=== PATIENT | female | born 1995 | race Caucasian/White ===

== ENCOUNTER 2021-04-07 16:48 | Emergency (ER) | payer OTHER ==
[2021-04-07 18:33] LABS: BASOPHIL 0.5 % (0-2); HCT 40.2 % (37.0-47.0); HGB 13.6 g/dl (12.5-16.0); LYMPHOCYTE 21.5 % (15-48); MCH 29.8 pg (25.0-31.0); MCHC 33.8 g/dL (32.0-36.0); MONOCYTE 6.8 % (0-12); MPV 9.3 fL (6.0-9.5); NEUTROPHIL 67.7 % (41-80); NRBC 0; PLT 421 K/uL (150-400); RBC 4.57 M/uL (4.20-5.40); RDW 13.5 % (11.5-14.0); WBC 14.8 K/uL (4.0-10.5)
[2021-04-07 18:55] LABS: CREATININE 0.55 mg/dL (0.51-0.95)
[2021-04-07 18:56] LABS: POTASSIUM 3.9 mmol/L (3.5-5.1)
[2021-04-07 19:48] LABS: BILIRUBIN NEGATIVE (NEGATIVE); BLOOD 3+ Ery/uL (NEGATIVE); COLOR YELLOW (YELLOW); GLUCOSE (U) NORMAL (NORMAL); LEUKOCYTES 2+ Leu/uL (NEGATIVE); NITRITE NEGATIVE (NEGATIVE); PROTEIN TRACE (LOW) mg/dL (NEGATIVE); SPECIFIC GRAVITY >=1.030 (1.001-1.030); UROBILINOGEN 0.2 mg/dL (0.2-1.0)
[2021-04-07 19:49] LABS: CLARITY HAZY (CLEAR)
[2021-04-07 19:54] LABS: BACTERIA 1+; URINARY WBC 20-50
[2021-04-07 19:55] LABS: CALCIUM OXALATE CRYSTALS LARGE; MUCOUS TRACE
[2021-04-10 19:10] LABS: CHLAMYDIA TRACHOMATIS, NAA Negative (Negative); NEISSERIA GONORRHOEAE, NAA Negative (Negative)
== END 2021-04-07 20:45 | disposition home or self-care (01) ==
LOC: FER 16:48
PROVIDERS: Nurse Practitioner Family
DX: O20.0 Threatened abortion (principal); Z3A.09 9 weeks gestation of pregnancy
CPT/HCPCS: 36415; 76830; 80048; 81001; 84702; 85025; 86900; 86901; 87210; 87491; 87591

== ENCOUNTER 2022-01-18 13:21 | Emergency (ER) | payer OTHER | END 2022-01-18 18:32 | disposition left against medical advice (07) | LOC: FER 13:21 | DX: O99.711 Diseases of the skin and subcutaneous tissue complicating pregnancy, first trimester (principal); O99.331 Smoking (tobacco) complicating pregnancy, first trimester; L02.416 Cutaneous abscess of left lower limb; F17.210 Nicotine dependence, cigarettes, uncomplicated; Z3A.10 10 weeks gestation of pregnancy; Z53.29 Procedure and treatment not carried out because of patient's decision for other reasons | CPT/HCPCS: 99283 ==

== ENCOUNTER 2022-05-13 08:10 | Emergency (ER) | payer OTHER ==
[2022-05-13 09:09] LABS: BASOPHIL 0.3 % (0-2); EOSINOPHIL 1.2 % (0-5); HGB 10.9 g/dl (12.5-16.0); MCV 87.8 fL (78.0-100.0); MONOCYTE 4.9 % (0-12); MPV 9.5 fL (6.0-9.5); NRBC 0; PLT 361 K/uL (150-400); RBC 3.76 M/uL (4.20-5.40); RDW 14.6 % (11.5-14.0); WBC 20.7 K/uL (4.0-10.5)
[2022-05-13 09:24] LABS: BILIRUBIN NEGATIVE (NEGATIVE); BLOOD NEGATIVE Ery/uL (NEGATIVE); CLARITY CLEAR (CLEAR); COLOR YELLOW (YELLOW); GLUCOSE (U) NORMAL (NORMAL); LEUKOCYTES 1+ Leu/uL (NEGATIVE); NITRITE NEGATIVE (NEGATIVE); PROTEIN NEGATIVE (NEGATIVE); SPECIFIC GRAVITY >=1.030 (1.001-1.030); UROBILINOGEN 0.2 mg/dL (0.2-1.0); pH 5.5 (5.0-9.0)
[2022-05-13 09:37] LABS: BACTERIA 1+
[2022-05-13 09:40] LABS: SQUAMOUS EPITHELIAL CELLS 20-50
[2022-05-13 09:52] LABS: BILIRUBIN - TOTAL 0.3 mg/dL (0.2-1.0); BUN/CREAT RATIO (CALC) 19.4 RATIO; CREATININE 0.36 mg/dL (0.51-0.95); GLOBULIN (CALCULATION) 4.1 g/dL; POTASSIUM 3.9 mmol/L (3.5-5.1); TOTAL PROTEIN 7.1 g/dL (6.4-8.2)
== END 2022-05-13 11:54 | disposition home or self-care (01) ==
LOC: FER 08:10
PROVIDERS: Emergency Medicine
DX: O99.891 Other specified diseases and conditions complicating pregnancy (principal); R10.33 Periumbilical pain; Z3A.26 26 weeks gestation of pregnancy; Z20.822 Contact with and (suspected) exposure to COVID-19; Z28.310 Unvaccinated for COVID-19; Z87.891 Personal history of nicotine dependence
CPT/HCPCS: 36415; 80053; 81001; 85025; J2405; J7120; U0002